=== PATIENT | female | born 1975 | race Caucasian/White ===

== ENCOUNTER 2016-12-06 02:40 | Emergency (ER) | payer MEDICAID ==
[~2016-12-06] VITALS: Ht 157.5 cm; Wt 69.4 kg
[2016-12-06 02:46] VITALS: BP 127/67
--- NOTE | 2016-12-06 04:48 | NUR ---
PT TAKEN TO BED 5
--- NOTE | 2016-12-06 04:56 | NUR ---
PT IS 41/F BIB SELF TO ED WITH C/O EPIGASTRIC PAIN, FOR A WEEK, WITH NAUSEA. PT STATES NO MED HX. DENIES V/D; SKIN IS PINK/WARM/DRY; AAOX4 WITH EVEN AND STEADY GAIT; LUNGS CLEAR BL; HR EVEN AND REGULAR; PT DENIES ANY FEVER, CP, SOB, OR COUGH AT THIS TIME; PATIENT STATES PAIN OF 6/10 AT THIS TIME; VSS; PATIENT POSITIONED FOR COMFORT; HOB ELEVATED; BEDRAILS UP X2; BED DOWN. ER MD MADE AWARE OF PT STATUS.
--- NOTE | 2016-12-06 05:31 | NUR ---
DR CABRALES EVALUATING PATIENT AT BEDSIDE.
--- NOTE | 2016-12-06 06:00 | NUR ---
Ultrasound at bedside.
--- NOTE | 2016-12-06 07:17 | NUR ---
REPORT GIVEN TO KRISTIAN LAU AT PATIENT BEDSIDE FOR TRANSFER OF CARE.
--- NOTE | 2016-12-06 07:30 | NUR ---
Patient discharged by dr. nolan, copy of labs given. Written and verbal after care instructions given by dr. nolan and explained. Patient verbalized understanding. Ambulatory with steady gait. All questions addressed prior to discharge by dr. nolan.
[2016-12-06 07:32] VITALS: BP 126/74
== END 2016-12-06 07:30 | disposition home or self-care (01) ==
LOC: MED 02:40
DX: K80.80 Other cholelithiasis without obstruction (principal)
CPT/HCPCS: 36415; 76705; 80053; 81003; 82150; 83690; 85025; 99285; Q0092

== ENCOUNTER 2020-07-03 12:58 | Emergency (ER) | payer MEDICAID ==
[~2020-07-03] VITALS: Ht 154.9 cm; Wt 65.3 kg
--- NOTE | 2020-07-03 13:06 | NUR ---
Pt taken to bed 4.
[2020-07-03 13:10] VITALS: BP 133/73
--- NOTE | 2020-07-03 13:11 | NUR ---
45 YEAR OLD FEMALE COMPLAINS OF EPIGASTRIC PAIN THAT STARTED LAST NIGHT. PT DENIES ANY NAUSEA, VOMITTING, OR DIARRHEA. PT AOX4, BREATHING EVEN AND UNLABORED, SKIN WARM AND DRY. BED IN LOWEST POSITION, LOCKED, BED RAIL UPX1. PMH - DM2 ALLERGIES - DENIES
[2020-07-03 13:48] LABS: APPEARANCE,URINE CLEAR (CLEAR); BILIRUBIN,URINE 1+ (NEGATIVE); BLOOD, URINE NEGATIVE (NEGATIVE); COLOR,URINE YELLOW (YELLOW); LEUKOCYTE ESTERASE ,URINE NEGATIVE (NEGATIVE); NITRITE, URINE NEGATIVE (NEGATIVE); PH,URINE 7.5 (5.0-9.0); UGLUCOSE TRACE (NEGATIVE)
[2020-07-03 14:00] LABS: RBC,URINE 0-5 /HPF (0-5); WBC,URINE 0-5 /HPF (0-5)
[2020-07-03 14:07] LABS: BASOPHILS % (AUTO) 0.5 % (0.0-2.0); EOSINOPHILS # (AUTO) 0.1 K/uL (0-0.4); EOSINOPHILS % (AUTO) 1.2 % (0.0-4.0); HEMATOCRIT 37.2 % (36-48); HEMOGLOBIN 12.3 g/dL (12.0-16.0); LYMPHOCYTES # (AUTO) 1.3 K/uL (2.5-16.5); LYMPHOCYTES % (AUTO) 16.8 % (20.5-51.1); MEAN CORPUSCULAR HEMOGLOBIN 28 pg (27-31); MEAN CORPUSCULAR HGB CONC 33 g/dL (33-37); MEAN CORPUSCULAR VOLUME 83.5 fL (80-94); MONOCYTES # (AUTO) 0.5 K/uL (0.8-1.0); MONOCYTES % (AUTO) 6.3 % (1.7-9.3); NEUTROPHILS # (AUTO) 5.8 K/uL (1.8-7.7); NEUTROPHILS % (AUTO) 75.2 % (42.2-75.2); PLATELET COUNT (AUTO) 293 K/uL (140-450); RED BLOOD CELL COUNT(AUTO) 4.45 MIL/uL (4.20-5.40); RED CELL DISTRIBUTION WIDTH 13.8 % (11.6-13.7); WHITE BLOOD COUNT (AUTO) 7.7 K/uL (4.8-10.8)
[2020-07-03 14:28] LABS: ALBUMIN 3.7 g/dL (3.4-5.0); ANION GAP 11.8 (8-16); CREATININE 0.7 mg/dL (0.6-1.3); POTASSIUM 3.8 mmol/L (3.5-5.1); TOTAL BILIRUBIN 1.8 mg/dL (0.0-1.0)
--- NOTE | 2020-07-03 14:57 | NUR ---
PT ALERT AND AWAKE, BREATHING EVEN AND UNLABORED. NO DISTRESS NOTED.
--- NOTE | 2020-07-03 15:45 | NUR ---
Patient discharged with v/s stable. Written and verbal after care instructions about cholelithiasis and liver profile given and explained. Patient alert, oriented and verbalized understanding of instructions. Ambulatory with steady gait. All questions addressed prior to discharge. ID band removed. Patient advised to follow up with PMD. Rx of norco and zofran given. Patient educated on indication of medication including possible reaction and side effects. Opportunity to ask questions provided and answered.
[2020-07-03 15:48] VITALS: BP 111/69
== END 2020-07-03 15:45 | disposition home or self-care (01) ==
LOC: MED 12:58
DX: K80.20 Calculus of gallbladder without cholecystitis without obstruction (principal); E11.9 Type 2 diabetes mellitus without complications
CPT/HCPCS: 36415; 76705; 80053; 81001; 83690; 84703; 85025; 99284; Q0092